=== PATIENT | male | born 1980 | race Caucasian/White ===

== ENCOUNTER 2016-09-19 09:43 | Emergency (ER) | payer OTHER ==
[2016-09-19 09:58] VITALS: BP 112/80; PULSE 84; TEMP 98.4; BMI 24.2
--- NOTE | 2016-09-19 10:19 | PDOC ---
History of Present Illness - General Chief Complaint: Laceration Stated Complaint: LEFT ARM LACERATION Time Seen by Provider: 09/19/16 09:48 History Source: Patient Exam Limitations: No Limitations - History of Present Illness Initial Comments: 35 yo M history SZ disorder presents with L forearm laceration. He sustained the laceration while discarding a porcelain toilet, he works for sanitation department. Apparently there was a sharp edge, although he did not see specifically what cut him. He cleaned it with water at the time. No bleeding at present. No other injuries. Last tetanus more than 5 years ago, likely close to 10. Past History - Past Medical History Allergies/Adverse Reactions: Allergies Allergy/AdvReac Type Severity Reaction Status Date / Time No Known Allergies Allergy Verified 09/19/16 09:46 Home Medications: Ambulatory Orders Cephalexin Monohydrate [Keflex -] 500 mg PO Q6H #28 capsule 09/19/16 Levetiracetam [Keppra -] 1,000 mg PO BID #120 tab 09/19/16 Seizures: Yes Other medical history: brain tumor - Psycho/Social/Smoking Cessation Hx Anxiety: No Suicidal Ideation: No Smoking Status: No Smoking History: Current every day smoker Number of Cigarettes Smoked Daily: 20 Information on smoking cessation initiated: Yes 'Breaking Loose' booklet given: 09/19/16 Hx Alcohol Use: No Drug/Substance Use Hx: No Substance Use Type: None Review of Systems - Review of Systems Able to Perform ROS?: Yes Comments:: GENERAL/CONSTITUTIONAL: No fever or chills. No weakness. HEAD, EYES, EARS, NOSE AND THROAT: No change in vision. No ear pain or discharge. No sore throat. MUSCULOSKELETAL: No joint or muscle swelling or pain. No neck or back pain. SKIN: No rash. +Lacerations to the L forearm x2. NEUROLOGIC: No headache, vertigo, loss of consciousness, or change in strength/ sensation. ENDOCRINE: No increased thirst. No abnormal weight change. HEMATOLOGIC/LYMPHATIC: No anemia, easy bleeding, or history of blood clots. ALLERGIC/IMMUNOLOGIC: No hives or skin allergy. *Physical Exam - Vital Signs Last Vital Signs Temp Pulse Resp BP Pulse Ox 98.4 F 84 18 112/80 97 09/19/16 09:43 09/19/16 09:43 09/19/16 09:43 09/19/16 09:43 09/19/16 09:43 - Physical Exam Comments: GENERAL: Awake, alert, and fully oriented, in no acute distress. HEAD: No signs of trauma EYES: PERRLA, EOMI, sclera anicteric, conjunctiva clear EXTREMITIES: L volar forearm with two lacerations, U-shaped, no active bleeding. The more distal laceration is 2 cm, the more proximal is 1.5 cm. Remainder of extremities with normal range of motion, no edema. No clubbing or cyanosis. No cords, erythema, or tenderness NEUROLOGICAL: Cranial nerves II through XII grossly intact. Normal speech, normal gait. Motor and sensation intact with the exception of the two flaps on the wounds. SKIN: Warm, Dry, normal turgor, no rashes. Procedures - Laceration/Wound Repair Left Volar Arm Wound Length: to 2.5 cm Wound Explored: clean, no foreign body present Wound's Depth, Shape: superficial, flap Irrigated w/ Saline: Yes Anesthesia: 1% Lidocaine Amount of Anesthetic (ccs): 2 Wound Repaired With: Sutures Suture Size/Type: 5:0, nylon Number of Sutures: 6 Sterile Dressing Applied: Yes Left Distal Volar Arm Wound Length: to 2.5 cm Wound Explored: clean, no foreign body present Wound's Depth, Shape: superficial, flap Irrigated w/ Saline: Yes Anesthesia: 1% Lidocaine Amount of Anesthetic (ccs): 1 Wound Repaired With: Sutures Suture Size/Type: 5:0, nylon Number of Sutures: 3 Layer Closure: No Sterile Dressing Applied: Yes *DC/Admit/Observation/Transfer Diagnosis at time of Disposition: Laceration of forearm, left Qualifiers: Encounter type: initial encounter Qualified Code(s): S51.812A - Laceration without foreign body of left forearm, initial encounter - Discharge Dispostion Disposition: HOME Condition at time of disposition: Stable Admit: No - Prescriptions Prescriptions: Cephalexin Monohydrate [Keflex -] 500 mg PO Q6H #28 capsule Levetiracetam [Keppra -] 1,000 mg PO BID #120 tab - Patient Instructions Printed Discharge Instructions: DI for Laceration Repair Additional Instructions: RETURN TO THE ER BETWEEN 09/28-09/30 TO HAVE STITCHES REMOVED. TAKE KEFLEX PRESCRIBED TO PREVENT INFECTION. IF YOU HAVE REDNESS, SEVERE PAIN, DRAINAGE OF PUS, SWELLING, OR RED STREAKS ON YOUR ARM, RETURN TO THE ER IMMEDIATELY.
[2016-09-19] MEDS ORDERED: CEPHALEXIN MONOHYDRATE 500 MG CAPSULE (UD) PO ONE (10:26)
[2016-09-19] MEDS ORDERED: CEPHALEXIN MONOHYDRATE 500 MG CAPSULE (UD) ONE (10:35)
[2016-09-19] MEDS ORDERED: DIPHTH,PERTUSS(ACELL),TET VAC 0.5 ML VIAL IM ONE (11:22)
== END 2016-09-19 11:37 | disposition home or self-care (01) ==
LOC: FER 09:43
PROC: 0HQEXZZ Repair Left Lower Arm Skin, External Approach (ICD-10-PCS; principal; 2016-09-19)
DX: S51.812A Laceration without foreign body of left forearm, initial encounter (principal); W26.8XXA Contact with other sharp object(s), not elsewhere classified, initial encounter; Y93.89 Activity, other specified; Y92.9 Unspecified place or not applicable; Y99.0 Civilian activity done for income or pay; F17.210 Nicotine dependence, cigarettes, uncomplicated
CPT/HCPCS: 73090-TC-LT; 99283-25

== ENCOUNTER 2016-11-07 08:31 | Emergency (ER) | payer OTHER ==
[2016-11-07 08:48] VITALS: BP 119/83; PULSE 93; TEMP 98.7; BMI 24.2
--- NOTE | 2016-11-07 09:05 | PDOC ---
History of Present Illness - General Chief Complaint: Injury Stated Complaint: RT WRIST PAIN Time Seen by Provider: 11/07/16 08:43 History Source: Patient Exam Limitations: No Limitations - History of Present Illness Initial Comments: 11/07/16 08:54 35y M no pmhx presents with R hand pain. The pt works in [place] monday , he banged his hand against the truck when he swung a can of recycles. He said he only had mild pain immediately afterwards and was able to finish working his shift. This weekend, it was sore but he was able to move it around and do things. 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 The pt denies any other injuries, shoulder pain, elbow pain, numbness/tingling/weakness. Past History - Past Medical History Allergies/Adverse Reactions: Allergies Allergy/AdvReac Type Severity Reaction Status Date / Time No Known Allergies Allergy Verified 11/07/16 08:32 Home Medications: Ambulatory Orders Levetiracetam [Keppra -] 1,000 mg PO BID #120 tab 09/19/16 Ibuprofen [Advil -] 800 mg PO PRN PRN 11/07/16 Seizures: Yes Other medical history: BRAIN TUMOR - Immunization History Immunization Up to Date: Yes - Psycho/Social/Smoking Cessation Hx Anxiety: No Suicidal Ideation: No Smoking Status: No Smoking History: Current every day smoker Have you smoked in the past 12 months: Yes Number of Cigarettes Smoked Daily: 20 Information on smoking cessation initiated: Yes 'Breaking Loose' booklet given: 11/07/16 Hx Alcohol Use: Yes (WEEKENDS 1-2 DRINKS) Drug/Substance Use Hx: No Substance Use Type: None Review of Systems - Review of Systems Able to Perform ROS?: Yes Comments:: 11/07/16 09:05 Constitutional - no reported Fever, Chills, Musculskelatal - +R wrist pain no reported back pain, joint swelling skin - no reported bruising, erythema, rash neurological: no reported numbness, focal weakness, tingling *Physical Exam - Vital Signs Last Vital Signs Temp Pulse Resp BP Pulse Ox 98.7 F 93 H 20 119/83 98 11/07/16 08:32 11/07/16 08:32 11/07/16 08:32 11/07/16 08:32 11/07/16 08:32 - Physical Exam Comments: 11/07/16 09:06 GENERAL: The patient is awake, alert, and fully oriented, Nontoxic - in no acute distress. EXTREMITIES: R upper extremity exam: R wrist flexion/extension normal, no focal bony tenderness on R hand, R wrist, R elbow/shoulder/forwarm. Mild tenderness at the radial aspect of R wrist, no tenderness appreciated on snuff box, no pain on axial loading of any fingers, strength intact throughout. NEUROLOGICAL: No facial assymetry, Normal speech, sensation/motor fucntion normal throughout SKIN: Warm, Dry, normal turgor, w/o bruising, erythema/warmth ED Treatment Course - RADIOLOGY Radiology Studies Ordered: Category Date Time Status WRIST- RIGHT [RAD] Stat Radiology 11/07/16 08:48 Ordered Medical Decision Making - Medical Decision Making suspect sprain no signs of scaphoid fracture will obtain xray pt declines pain meds, took motrin prior to arrival 11/07/16 09:37 xrays negative for acute pathology will give pt splint rest/elevation/NSAIDS if pain persistent will have pt fu with ortho return precautions were discussed I discussed the physical exam findings, ancillary test results and final diagnoses with the patient. I answered all of the patient's questions. The patient was satisfied with the care received and felt comfortable with the discharge plan and treatment plan. The patient will call their primary care physician within 24 hours to arrange follow-up and will return to the Emergency Department with any new, persistent or worsening symptoms. *DC/Admit/Observation/Transfer Diagnosis at time of Disposition: Wrist pain, acute Qualifiers: Laterality: right Qualified Code(s): M25.531 - Pain in right wrist - Discharge Dispostion Disposition: HOME Condition at time of disposition: Improved Admit: No - Referrals Referrals: Nereida Archuleta MD [Staff Physician] - Sumanth Ordaz MD [Staff Physician] - - Patient Instructions Printed Discharge Instructions: DI for Wrist Pain Additional Instructions: Return to the emergency department immediately with ANY new, persistent or worsening symptoms. KEep your hadn elevated to prvent swelling. Use a splint for comfort Avoid heavy lifting until the pain is gone or you have followed up with your doctor or orthopedics. Use motrin or tylenol every 6 hours for pain. You MUST call and follow up with your doctor or orthopedics within 4-5 days for further evaluation of your symptoms. Results were discussed with you. Please make sure your doctor reviews the results of your emergency evaluation. Print Language: SAUDI ARABIAN - Post Discharge Activity Work/School Note: Back to Work
== END 2016-11-07 09:58 | disposition home or self-care (01) ==
LOC: FER 08:31
PROC: 2W3EX1Z Immobilization of Right Hand using Splint (ICD-10-PCS; principal; 2016-11-07)
DX: M25.531 Pain in right wrist (principal); X58.XXXA Exposure to other specified factors, initial encounter; Y93.89 Activity, other specified; Y92.410 Unspecified street and highway as the place of occurrence of the external cause; Y99.0 Civilian activity done for income or pay
CPT/HCPCS: 73110-TC-RT; 99282-25

== ENCOUNTER 2017-12-27 13:37 | Emergency (ER) | payer OTHER, BC ==
[2017-12-27 13:55] VITALS: BP 124/83; PULSE 80; TEMP 98.6; BMI 25.0
--- NOTE | 2017-12-27 14:14 | PDOC ---
History of Present Illness - General Chief Complaint: Injury Stated Complaint: RIGHT SHOULDER INJURY AT WORK YESTERDAY Time Seen by Provider: 12/27/17 14:14 - History of Present Illness Initial Comments: 12/27/17 14:34 37 yo M w a pmh of a brain tumor s/p resection with resultant seizure disorder is here with Right sided shoulder pain after an injury at work yesterday. He was pushing up a heavy can with his arm in abduction when he all of a sudden heard a pop in his shoulder and had significant pain. He thought it would go away but it hurt him while he was sleeping so he came into the ED today. He only experiences pain upon abduction of the shoulder greater than 30 degrees. He has not pain to strong palpation anywhere on the shoulder and full sensation is in tact. He can move his elbow and hand normally without any limits. He experiences no discomfort on the original 30 degrees of abduction but above that it hurts. Denies recent fevers, chills or infections. Denies any neck, elbow, wrist or hand pain. Denies SOB or difficulty breathing. Denies chest pain, N/V/D/C. Denies dysuria, frequency, urgency. Past History - Past Medical History Allergies/Adverse Reactions: Allergies Allergy/AdvReac Type Severity Reaction Status Date / Time No Known Allergies Allergy Verified 12/27/17 13:38 Home Medications: Ambulatory Orders levETIRAcetam [Keppra -] 1,000 mg PO BID #120 tab 09/19/16 COPD: No Seizures: Yes Other medical history: BRAIN TUMOR - Immunization History Immunization Up to Date: Yes - Suicide/Smoking/Psychosocial Hx Smoking Status: No Smoking History: Current every day smoker Have you smoked in the past 12 months: Yes Number of Cigarettes Smoked Daily: 10 Information on smoking cessation initiated: Yes 'Breaking Loose' booklet given: 12/27/17 Hx Alcohol Use: Yes Drug/Substance Use Hx: No Substance Use Type: Alcohol Review of Systems - Review of Systems Comments:: 12/27/17 14:39 CONSTITUTIONAL: Absent: fever, chills, diaphoresis, generalized weakness, malaise, loss of appetite HEENT: Absent: rhinorrhea, nasal congestion, throat pain, throat swelling, difficulty swallowing, mouth swelling, ear pain, eye pain, visual Changes CARDIOVASCULAR: Absent: chest pain, syncope, palpitations, irregular heart rate, lightheadedness , peripheral edema RESPIRATORY: Absent: cough, shortness of breath, dyspnea with exertion, orthopnea, wheezing, stridor, hemoptysis GASTROINTESTINAL: Absent: abdominal pain, abdominal distension, nausea, vomiting, diarrhea, constipation, melena, hematochezia GENITOURINARY: Absent: dysuria, frequency, urgency, hesitancy, hematuria, flank pain, genital pain MUSCULOSKELETAL: Present: Arthralgia Absent: myalgia, joint swelling SKIN: Absent: rash, itching, pallor HEMATOLOGIC/IMMUNOLOGIC: Absent: easy bleeding, easy bruising, lymphadenopathy, frequent infections ENDOCRINE: Absent: unexplained weight gain, unexplained weight loss, heat intolerance, cold intolerance NEUROLOGIC: Absent: headache, focal weakness or paresthesias, dizziness, unsteady gait, seizure, mental status changes, bladder or bowel incontinence PSYCHIATRIC: Absent: anxiety, depression, suicidal or homicidal ideation, hallucinations. *Physical Exam - Vital Signs Last Vital Signs Temp Pulse Resp BP Pulse Ox 98.6 F 80 16 124/83 99 12/27/17 13:38 12/27/17 13:38 12/27/17 13:38 12/27/17 13:38 12/27/17 13:38 - Physical Exam Comments: 12/27/17 14:40 RIGHT SHOULDER: Full sensation bilaterally. 2+ pulses in both wrists. Neurovascularly in tact. Normal Abduction for first 30 degrees, limited beyond. R hand strength is equal to left hand. GENERAL: Well developed, well nourished. Awake and alert. No acute distress. HEENT: Normocephalic, atraumatic. PERRLA, EOMI. No conjunctival pallor. Sclera are non- icteric. Moist mucous membranes. Oropharynx is clear. NECK: Supple. Full ROM. No JVD. No thyromegaly. No lymphadenopathy. CARDIOVASCULAR: Regular rate and rhythm. No murmurs, rubs, or gallops. Distal pulses are 2+ and symmetric. PULMONARY: No evidence of respiratory distress. Lungs clear to auscultation bilaterally. No wheezing, rales or rhonchi. ABDOMINAL: Soft. Non-tender. Non-distended. No rebound or guarding. No organomegaly. Normoactive bowel sounds. MUSCULOSKELETAL Limited range of Abduction at R shoulder joint. Otherwise normal range of motion at all joints. No bony deformities or tenderness. No CVA tenderness. EXTREMITIES: No cyanosis. No clubbing. No edema. No calf tenderness. SKIN: Warm and dry. Normal capillary refill. No rashes. No jaundice. NEUROLOGICAL: Alert, awake, appropriate. Cranial nerves 2-12 grossly intact. Normal speech. Gait is normal without ataxia. PSYCHIATRIC: Cooperative. Good eye contact. Appropriate mood and affect. Medical Decision Making - Medical Decision Making 12/27/17 14:43 37 yo M here with R shoulder pain. He hurt his arm at work while pushing a can overhead. He is neurovascularly in tact. Highest on DD: Rotater cuff injury - supraspinatus tear/sprain, deltoid injury, dislocated shoulder. Plan: Shoulder xray, NSAIDs, ROM exercises, ortho follow up. Xray shows no signs of bone fx. Will DC with instructions to care for shoulder. 12/27/17 15:19 *DC/Admit/Observation/Transfer Diagnosis at time of Disposition: Rotator cuff (capsule) sprain, Rotator cuff arthropathy of right shoulder - Discharge Dispostion Disposition: HOME Condition at time of disposition: Stable Decision to Admit order: No - Referrals Referrals: Juan Francisco Pacheco MD [Non Staff, Medical] - Truman Esquivel MD [Non Staff, Medical] - Salo Park MD [Staff Physician] - Aries Pereira MD [Non Staff, Medical] - Art Miranda MD [Staff Physician] - Lloyd Almaguer MD [Staff Physician] - Juan Francisco Green MD [Staff Physician] - Jim Suresh [Staff Physician] - - Patient Instructions Printed Discharge Instructions: Rotator Cuff Repair, Shoulder Tendinopathy, DI for Rotator Cuff Injury, Rotator Cuff Injury Additional Instructions: You came into the ER with right sided shoulder pain. We did an Xray and did not see any broken bones. You have most likely injured your rotator cuff. The best test to diagnose this is an MRI. We are attaching several orthopedists numbers for you to call in the next 3 to 5 days to schedule an appointment and have your shoulder more thoroughly examined. Take advil/ibuprofen/motrin for pain as needed. Make sure to try to move your shoulder and keep it mobile. It is important to actively move your shoulder and try to maximize your range of motion. Please come back to the ER if your shoulder pain becomes unbearable, if it becomes red, if you develop a fever or start vomiting, if your arm becomes numb, or have any other new or worsening concerns. Thank you for coming to the [place] ED. We hope you feel better soon. Print Language: [place] - Post Discharge Activity
[2017-12-27] MEDS ORDERED: IBUPROFEN 400 MG TABLET (FP) PO ONE ×2 (14:31→14:34)
--- NOTE | 2017-12-27 14:45 | PDOC ---
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 No pain at rest. Pain with abduction and flexion of the shoulder, beginning at approximately 60. - Physicial Exam PE: 12/27/17 15:31 PE shows no deformity or point tenderness. Pain is only elicited with abduction. Pulses full. No distal sensory deficits. No distal motor deficits. Lungs clear. Heart exam normal. - Medical Decision Making 12/27/17 15:32 Assessment: Rotator cuff sprain Plan: X-ray is negative. Symptomatic treatment, with early range of motion to avoid frozen shoulder. Orthopedic follow-up. Strongly consider physical therapy.
== END 2017-12-27 15:45 | disposition home or self-care (01) ==
LOC: FER 13:37
DX: S43.421A Sprain of right rotator cuff capsule, initial encounter (principal); X58.XXXA Exposure to other specified factors, initial encounter; Y93.89 Activity, other specified; Y92.9 Unspecified place or not applicable; F17.210 Nicotine dependence, cigarettes, uncomplicated
CPT/HCPCS: 73030-TC-RT-FY; 99282-25

== ENCOUNTER 2020-05-07 10:09 | Emergency (ER) | payer OTHER ==
[2020-05-07 10:24] VITALS: BP 120/87; PULSE 80; TEMP 98.2; BMI 28.2
== END 2020-05-07 11:00 | disposition home or self-care (01) ==
LOC: FER 10:09
PROC: 3E0234Z Introduction of Serum, Toxoid and Vaccine into Muscle, Percutaneous Approach (ICD-10-PCS; principal; 2020-05-07)
DX: S86.912A Strain of unspecified muscle(s) and tendon(s) at lower leg level, left leg, initial encounter (principal)
CPT/HCPCS: 90471; 99284-25